=== PATIENT | female | born 1995 | race Caucasian/White ===

== ENCOUNTER 2020-05-27 13:11 | Emergency (ER) | payer BC ==
--- OUTSIDE RECORDS SUMMARY | 2020-05-27 13:14 | XMS REPORT | Continuity of Care Document ---
:1995 Author Organization [facility] t Address [address] [place] [address] Care Team Providers Name Role Phone Unavailable Unavailable Unavailable Payers Payer Name Policy Type Policy Number Effective Date Expiration Date S ource Problems This patient has no known problems. Allergies, Adverse Reactions, Alerts Allergy Allergy Status Severity Reaction(s) Onset Inactive Treating Comm ents Source Name Type Date Date Clinician No Known DA Active U 2020-0 [facility] [place] No Known DA Active U 2020-0 [facility] Medications This patient has no known medications. Procedures This patient has no known procedures. Results Test Description Test Time Test Comments Results Result Comments Source INFLUENZA A B PCR 2020-05-15 19:49:00 Test Item Value Reference Range Interpretation Comme nts INFLUENZA A PCR (test code = FLUAPCR) NEGATIVE NEGATIVE INFLUENZA B PCR (test code = FLUBPCR) NEGATIVE NEGATIVE Coronavirus 2018 nCoV [id number] 19:38:00 Test Item Value Reference Range Interpretation Comments Coronavirus 2019 Positive Negative A RESULTS CA LLED TO OBI nCoV Bedside (test A.READ BA CK & CONFIRMED? code = [id number]) YBY F.L AB.IR 05/15/201937 Positive r esults are indicative of t he presence ofSARS -CoV-2 RNA; clinical c orrelation with patient hi storyand other diagnosti c information is necessary to determinepat ient infection statu s. Positive result s do not rule outbacteri al infection or co -infection with other viru ses.TEST PERFORMED UNDER AN EMERGENCY USE AUTHORIZATION F ROM FDA Specimen Comment: CLEAN CATCHLACTIC [id number] 18:37:00 Test Item Value Reference Range Interpretation Comments LACTIC ACID (test code = LACT) 0.8 MMOL/L 0.5-2.2 N Specimen Comment: CLEAN CATCHCOMPREHENSIVE METABOLIC [id number] 18:37:00 Test Item Value Reference Range Interpretation Comments SODIUM (test code = NA) 138 mEq/L 135-145 N POTASSIUM (test code = K) 3.7 mEq/L 3.5-5.0 N CHLORIDE (test code = CL) 103 mEq/L 100-115 N CARBON DIOXIDE (test code = CO2) 23 mEq/L 22-31 N ANION GAP (test code = GAP) 15.90 10-20 N GLUCOSE (test code = GLU) 95 mg/dL 65-110 N BLOOD UREA NITROGEN (test code = 12 mg/dL 7-18 N BUN) GLOMERULAR FILTRATION RATE (test 75 ml/min >60 N code = GFR) CREATININE (test code = CREAT) 0.9 mg/dL 0.5-1.0 N TOTAL PROTEIN (test code = PROT) 6.9 gm/dL 6.3-8.2 N ALBUMIN (test code = ALB) 3.6 gm/dL 3.4-4.8 N CALCIUM (test code = CA) 8.1 mg/dL 8.4-10.2 L BILIRUBIN TOTAL (test code = 0.2 mg/dL 0.2-1.0 N BILT) SGOT/AST (test code = AST) 29 units/L 15-37 N SGPT/ALT (test code = ALT) 34 units/L 12-78 N ALKALINE PHOSPHATASE TOTAL (test 113 units/L 46-116 N code = ALKP) Specimen Comment: CLEAN CATCHLIVER [id number] 18:37:00 Test Item Value Reference Range Interpretation Comments BILIRUBIN DIRECT (test code = BILD) 0.1 mg/dL <0.2 N Specimen Comment: CLEAN [id number] 18:37:00 Test Item Value Reference Range Interpretation Comments TROPONIN-I (test code = TROPI) <0.017 ng/mL <0.056 N Specimen Comment: CLEAN CATCH- XR CHEST 1 [id number] 18:30:00 Patient Name: VIVIENNE SAM Unit No: [id number] EXAMS: CPT CODE: [id number] XR CHEST 1 V 50717 SINGLE VIEW RADIOGRAPH CHEST INDICATION: CODE SEPSIS. Fever, headache, sore breast TECHNIQUE: A single view frontal radiograph of the chest was obtained. COMPARISONS: None. FINDINGS: There is no acute osseous fracture or dislocation. There is no subdiaphragmatic free gas. The cardiomediastinal size and contour are normal. There is no pneumothorax,pleural effusion or organized pneumonia. IMPRESSION: 1. No acute cardiopulmonary process. at 1830 Reported and signed by: Miguel Ángel Rubin DO CC: Tyler Chance MD; Manolo Whyte MD Technologist: Josy Foster, RT, CT Trnscrbd D/ (1829) [email or web address] Orig Print D/T: S: 05/15/2020 (1832) [facility] NAME: VIVIENNE SAM Radiology Department PHYS: Tyler Warner [address] : 1995 AGE: 25 SEX: F [place], [place] [address] LOC: YAMEL PHONE #: [phone] EXAM DATE: 05/15/2020 STATUS: PRE ER FAX #: [phone] RAD NO: Page 1 Signed ReportPROTHROMBIN [id number] 18:24:00 Test Item Value Reference Range Interpretation Comments PROTHROMBIN TIME PATIENT (test code 13.5 secs 10.4-12.4 H = PTP) Specimen Comment: CLEAN CATCHIS PATIENT ON ANTICOAGULANTS ? NINTERNATIONAL NORMAL [id number] 18:24:00 Test Item Value Reference Range Interpretation Comments INTERNATIONAL NORMAL 1.25 The INR is to be used RATIO (test code = INR) only for monitoring oral anticoagulantth erapy. INDICATION INR VALUE 1. Prophylaxis inc luding high risk castellanos rgery 2.0 - 2.52. Deep venous thr ombosis. Pulmonary em bolism. Atrial fibrilla tion or bioprostheti c heart valves 2.0 - 3.03. Mechanical hear t valves or recurren t systemic emboli sm. 3.0 - 3.5 Specimen Comment: CLEAN CATCHIS PATIENT ON ANTICOAGULANTS ? NTHROMBOPLASTIN TIME [id number] 18:24:00 Test Item Value Reference Range Interpretation Comments THROMBOPLASTIN TIME PARTIAL (test 36.3 secs 22-38 N code = PTT) Specimen Comment: CLEAN CATCHIS PATIENT ON ANTICOAGULANTS ? NUA RFLX MICR CULT IF [id number] 18:16:00 Test Item Value Reference Range Interpretation Comments UA COLOR (test code = YELLOW YELLOW COLU) UA APPEARANCE (test code Slightly-Cloudy CLEAR = APPU) UA GLUCOSE DIPSTICK (test NEGATIVE NEG code = DGLUU) UA BILIRUBIN DIPSTICK NEGATIVE NEG (test code = BILU) UA KETONE DIPSTICK (test TRACE NEG A code = KETU) UA SPECIFIC GRAVITY (test 1.011 1.001-1.035 N code = SGU) UA BLOOD DIPSTICK (test 3+ NEG A code = NIALL) UA PH DIPSTICK (test code 5.0 5-9 = GERLAD) UA PROTEIN DIPSTICK (test NEGATIVE NEG code = PROU) UA UROBILINIOGEN DIPSTICK NEGATIVE mg/dL NEG (test code = URO) UA NITRITE DIPSTICK (test NEG NEG code = CHERYL) UA LEUKOCYTE ESTERASE 2+ NEG A DIPSTICK (test code = LEUU) UA WBC (test code = WBCU) 21-30 #/hpf NONE SEEN A UA RBC (test code = RBCU) TOO NUMEROUS TO CNT NONE SEEN A #/hpf UA EPITHELIAL CELLS (test FEW #/HPF RARE-FEW code = EPIU) UA BACTERIA (test code = FEW /HPF RARE-FEW BACU) UA MUCUS (test code = RARE NONE SEEN MUCU) Specimen Comment: CLEAN CATCHIndication for culture: Suprapubic PainCBC W/AUTO [id number] 18:08:00 Test Item Value Reference Range Interpretation Comments WHITE BLOOD CELL (test code = WBC) 6.7 K/mm3 6.6-12.1 N RED BLOOD CELL (test code = RBC) 4.65 M/mm3 3.45-5.01 N HEMOGLOBIN (test code = HGB) 13.1 g/dL 10.7-13.9 N HEMATOCRIT (test code = HCT) 40.9 % 32.1-42.1 N MEAN CELL VOLUME (test code = MCV) 88 fL 84.1-94.8 N MEAN CELL HGB (test code = MCH) 28.2 pg 27-35 N MEAN CELL HGB CONCETRATION (test 32.0 gm/dL 32.2-34.1 L code = MCHC) RED CELL DISTRIBUTION WIDTH (test 13.5 % 12.4-16.5 N code = RDW) PLATELET COUNT (test code = PLT) 185 K/mm3 133-385 N MEAN PLATELET VOLUME (test code = 11.3 fl 9.1-12.7 N MPV) NEUTROPHIL % (test code = NT%) 67.1 % 56.5-79.4 N LYMPHOCYTE % (test code = LY%) 22.1 % 14.3-34.3 N MONOCYTE % (test code = MO%) 9.4 % 5.1-10.4 N EOSINOPHIL % (test code = EO%) 0.7 % 0.1-3.0 N BASOPHIL % (test code = BA%) 0.4 % 0.1-1.0 N NEUTROPHIL # (test code = NT#) 4.5 K/mm3 LYMPHOCYTE # (test code = LY#) 1.5 K/mm3 MONOCYTE # (test code = MO#) 0.6 K/mm3 EOSINOPHIL # (test code = EO#) 0.05 K/mm3 BASOPHIL # (test code = BA#) 0.0 K/mm3 RBC MORPHOLOGY REQUIRED (test code NORMAL NORMAL = RBCM) PLATELET MORPHOLOGY REQUIRED (test NORMAL NORMAL code = PLTMR) Specimen Comment: CLEAN CATCHAG HEPATITIS B [id number] 17:03:00 Test Item Value Reference Range Interpretation Comments AG HEPATITIS B SURFACE (test code NONREACTIVE NONREACTIVE = HBSAG) Specimen Comment: MACIS CONSENT FORM SIGNED FOR HIV TESTING? YAB HEPATITIS C [id number] 17:03:00 Test Item Value Reference Range Interpretation Comments AB HEPATITIS C (test code = NONREACTIVE NONREACTIVE HCVAB) SIGNAL TO CUTOFF (test code = <0.02 <0.80 N CUTOFF) Specimen Comment: MACIS CONSENT FORM SIGNED FOR HIV TESTING? YAB TREPONEMA 2020-04-16 17:03:00 Test Item Value Reference Range Interpretation Comments AB TREPONEMA (test code = TREPAB) NONREACTIVE NONREACTIVE Specimen Comment: MACIS CONSENT FORM SIGNED FOR HIV TESTING? YAB HIV 1 2 2020-04-16 17:03:00 Test Item Value Reference Range Interpretation Comments AB HIV 1 2 (test NONREACTIVE NONREACTIVE Done by Neil Varghese code = [id number]) 4th Gen HIV Ag/Ab Combo Screen Specimen Comment: MACIS CONSENT FORM SIGNED FOR HIV TESTING? YAG HEPATITIS B [id number] 16:35:00 Test Item Value Reference Range Interpretation Comments AG HEPATITIS B SURFACE (test code NONREACTIVE NONREACTIVE = HBSAG) Specimen Comment: MACIS CONSENT FORM SIGNED FOR HIV TESTING? YAB HEPATITIS C [id number] 16:35:00 Test Item Value Reference Range Interpretation Comments AB HEPATITIS C (test code = HCVAB) NONREACTIVE SIGNAL TO CUTOFF (test code = CUTOFF) <0.80 Specimen Comment: MACIS CONSENT FORM SIGNED FOR HIV TESTING? YAB TREPONEMA 2020-04-16 16:35:00 Test Item Value Reference Range Interpretation Comments AB TREPONEMA (test code = TREPAB) NONREACTIVE NONREACTIVE Specimen Comment: MACIS CONSENT FORM SIGNED FOR HIV TESTING? YAB HIV 1 2 2020-04-16 16:35:00 Test Item Value Reference Range Interpretation Comments AB HIV 1 2 (test code = [id number]) NONREACTIVE Specimen Comment: MACIS CONSENT FORM SIGNED FOR HIV TESTING? YCBC W/AUTO DIFF 2020-04-16 15:55:00 Test Item Value Reference Range Interpretation Comments WHITE BLOOD CELL 23.7 K/mm3 6.6-12.1 HH RESULTS TRISTAN IFIED BY (test code = WBC) REPEAT NASRIN LYSISRESULTS CALLED TO JANET StoneREAD BACK & CONFIRME D? Y.BY F.LAB.[facility] [place] 04/16 9763. RED BLOOD CELL (test 4.39 M/mm3 3.45-5.01 N code = RBC) HEMOGLOBIN (test 12.6 g/dL 10.7-13.9 N code = HGB) HEMATOCRIT (test 38.2 % 32.1-42.1 N code = HCT) MEAN CELL VOLUME 87 fL 84.1-94.8 N (test code = MCV) MEAN CELL HGB (test 28.7 pg 27-35 N code = MCH) MEAN CELL HGB 33.0 gm/dL 32.2-34.1 N CONCETRATION (test code = MCHC) RED CELL 13.1 % 12.4-16.5 N DISTRIBUTION WIDTH (test code = RDW) PLATELET COUNT (test 243 K/mm3 133-385 N code = PLT) MEAN PLATELET VOLUME 11.7 fl 9.1-12.7 N (test code = MPV) NEUTROPHIL % (test 81.6 % 56.5-79.4 H code = NT%) LYMPHOCYTE % (test 11.0 % 14.3-34.3 L code = LY%) MONOCYTE % (test 6.1 % 5.1-10.4 N code = MO%) EOSINOPHIL % (test 0.3 % 0.1-3.0 N code = EO%) BASOPHIL % (test 0.2 % 0.1-1.0 N code = BA%) NEUTROPHIL # (test 19.4 K/mm3 code = NT#) LYMPHOCYTE # (test 2.6 K/mm3 code = LY#) MONOCYTE # (test 1.5 K/mm3 code = MO#) EOSINOPHIL # (test 0.07 K/mm3 code = EO#) BASOPHIL # (test 0.1 K/mm3 code = BA#) RBC MORPHOLOGY NORMAL NORMAL REQUIRED (test code = RBCM) PLATELET MORPHOLOGY NORMAL NORMAL REQUIRED (test code = PLTMR) Coronavirus 2018 [facility] [id number] 14:07:00 Test Item Value Reference Range Interpretation Comments Coronavirus 2018 Negative Negative RESULTS C ALLED TO TAYLOR nCoV Bedside (test THOMPSONR EAD BACK & code = CONFIRMED? BY F .LAB.LBA COVNONPUIBED) 04/16/20 1407 This result does not rule o ut co-infections w ith otherpathogens. * False negative result s may occur if a specimen i simproperly collected, clemens sported or handled. False negativeresults may also occur if amplif ication inhibitors arep resent in the specimen or if inadequate leve ls of virusesare pres ent in the specimen. Negat jennifer results should beconsid ered in the context of a pa tient's recent exposure s,history and the presenc e of clinical signs and symptomsconsist ent with COVID-19. * Neg ative results should be treated as presumptive andtested with an alterna tive FDA authorized mole cular assayif necessa ry for clinical managm ent, including infectioncontro l. * As with any molecu lar test,mutations within the target regions Bodwen ID NOW COVID-[address] could affect primeran d/or probe binding resulti ng in failure to dete ct therescence of the virus.TEST PERF ORMED UNDER AN EMERGENCY US E AUTHORIZATION F ROM FDA
[2020-05-27 14:13] LABS: Urine Blood 2+ (NEG); Urine Glucose NEGATIVE (NEG); Urine Protein NEGATIVE (NEG); Urine Specific Gravity 1.025 (1.005-1.030)
[2020-05-27 14:16] LABS: Basophils % 0.3 % (0-1.3); Hematocrit 41.1 % (36.0-45.0); MPV 8.9 fL (7.6-11.3); RBC Red Blood Cell Count 4.93 M/uL (3.86-4.86)
[2020-05-27 14:19] LABS: Urine Bacteria <20 /HPF (<20); Urine Culture Reflex Order NOT NEEDED; Urine RBC <5 /HPF (NONE SEEN)
[2020-05-27 14:23] LABS: Bilirubin Direct 0.2 mg/dL (0-0.2); Bilirubin Total 0.8 mg/dL (0.2-1.0); Potassium 3.9 mmol/L (3.5-5.1); Protein, Total 7.8 g/dL (6.4-8.2)
--- NOTE | 2020-05-27 14:51 | RAD REPORT ---
EXAM DESCRIPTION: US - Abdomen Exam Limited - 05/27/2020 2:03 pm CLINICAL HISTORY: ABD PAIN COMPARISON: No comparisons FINDINGS: No gallstones, sludge or other abnormalities within the gallbladder lumen. There is no wal l thickening or pericholecystic fluid. No common duct stone or biliary tree dilatation identified. IMPRESSION: Normal gallbladder and biliary tree ultrasound.
--- NOTE | 2020-05-27 14:59 | RAD REPORT ---
EXAM DESCRIPTION: CT - Abdomen Pelvis W Contrast - 05/27/2020 2:52 pm CLINICAL HISTORY: 6 weeks ;Abd pain COMPARISON: Abdomen Exam Limited dated 05/27/2020 TECHNIQUE: Biphasic, helical CT imaging of the abdomen and pelvis was performed following 100 ml non -ionic IV contrast. No oral contrast administered. All CT scans are performed using dose optimization technique as appropriate and may include automated exposure control or mA/KV adjustment according to patient size. FINDINGS: No suspicious findings in the lung bases. The liver, spleen, and pancreas show no suspicious findings. Gallbladder and biliary tree are also wi thout suspicious finding. Symmetric renal function is seen with no hydronephrosis or suspicious renal mass. No pyelonephritis o r acute parenchymal process. No bladder abnormalities. No adrenal abnormalities. Uterus is normal size for 6 week status. No abnormal air or fluid collection in the endome trial cavity. Ovaries and adnexa show no suspicious findings. Stomach, duodenum and jejunum are unremarkable. Patient has significant wall thickening and edema inv olving most or all of the ileum to the terminal ileum level. Cecum is not involved. No acute colon pr ocess identified. Free fluid is collecting in the dependent portion of the pelvis. No free air or pn eumatosis. No mass of the small bowel seen. No mass or bulky lymphadenopathy. Patient as a 12 mm fat only umbilical hernia. No suspicious bony findings. IMPRESSION: Moderate severity ileitis pattern involving most or all of the ileum including the termi nal ileum. No colon involvement. No free air, abscess or surgically emergent finding. Uterus, ovaries and adnexa unremarkable.
[2020-05-27] MEDS ORDERED: NA CHLORIDE 0.9% 1,000 ML ONE (15:01)
[2020-05-27] MEDS ORDERED: ONDANSETRON 4 MG/2 ML VIAL ONE (15:33)
[2020-05-27] MEDS ORDERED: MORPHINE 4 MG/ML SYR ONE (15:33)
--- NOTE | 2020-05-27 16:02 | EDPHYS ---
Physician Documentation [facility] Name: Keren Kelley Age: 25 yrs Sex: Female : 1995 Arrival Date: 05/27/2020 Time: 13:12 Bed 14 Private MD: ED Physician Pillo Palafox HPI: 05/27 13:30 This 25 yrs old Female presents to ER via Unassigned with complaints of rn Abdominal Pain - 6 wks post . 13:30 The patient presents with abdominal pain in the epigastric area, in the periumbilical rn area. 13:32 The symptoms do not radiate. Associated signs and symptoms: Pertinent positives: rn nausea, Pertinent negatives: blood in stools, dysuria, fever. The symptoms are described as achy, crampy. Modifying factors: The symptoms are alleviated by nothing, the symptoms are aggravated by touching the area. Severity of pain: At its worst the pain was moderate in the emergency department the pain has improved. The patient has not experienced similar symptoms in the past. Reports 6 weeks , no vaginal discharge or pain, no fever, + nausea and mid to upper abd pain, reports now feeling lower abd pain. No diarrhea. No previous similar episodes. . LOCAL SUPERINTENDENT: 15:41 LMP N/A - control method Historical: - Allergies: 13:40 No Known Allergies; 7 - Home Meds: 13:40 None [Active]; ks7 - PMHx: 13:40 None; 7 - Immunization history:: Adult Immunizations unknown. - Social history:: Smoking status: Patient denies any tobacco usage or history of. - Family history:: not pertinent. - Hospitalizations: : No recent hospitalization is reported. ROS: 13:32 Constitutional: Negative for fever, chills, and weight loss, Eyes: Negative for injury, rn pain, redness, and discharge, Neck: Negative for injury, pain, and swelling, Cardiovascular: Negative for chest pain, palpitations, and edema, Respiratory: Negative for shortness of breath, cough, wheezing, and pleuritic chest pain, Abdomen/GI: + abd pain and nausea Back: Negative for injury and pain, : Negative for injury, bleeding, discharge, and swelling, MS/Extremity: Negative for injury and deformity, Skin: Negative for injury, rash, and discoloration, Neuro: Negative for headache, weakness, numbness, tingling, and seizure. Exam: 13:32 Constitutional: This is a well developed, well nourished patient who is awake, alert, rn and in no acute distress. Head/Face: Normocephalic, atraumatic. Cardiovascular: Regular rate and rhythm. No pulse deficits. Respiratory: No increased work of breathing, no retractions or nasal flaring. Abdomen/GI: soft, + epigastric/periumbilical/suparpubic tenderness, no rebound Skin: Warm, dry MS/ Extremity: Pulses equal, no cyanosis. Neurovascular intact. Full, normal range of motion. Equal circumference. Neuro: Awake and alert, GCS 15 Vital Signs: 13:38 BP 108 / 69; Pulse 103; Resp 18; Pulse Ox 100% on R/A; Pain 7/10; ks7 14:01 BP 110 / 71; Pulse 98; Resp 18; Pulse Ox 100% ; Pain 7/10; ks7 14:59 BP 109 / 78; Pulse 96; Resp 18; Pulse Ox 100% on R/A; Pain 4/10; ks7 15:41 BP 97 / 57; Pulse 99; Resp 18; Temp 98.5(O); Pulse Ox 100% on R/A; ks7 15:48 Temp 98.5(O); Pulse Ox 100% ; Pain 5/10; ks7 15:50 Pulse Ox 100% ; ks7 16:22 BP 98 / 57; Pulse 99; Resp 18; Temp 98.5(O); Pulse Ox 100% on R/A; Pain 0/10; ks7 17:06 BP 102 / 64; Pulse 98; Resp 18; Pulse Ox 100% ; Pain 0/10; ks7 MDM: 13:23 Patient medically screened. rn 15:58 Differential diagnosis: gastritis, non-specific abd pain, urinary tract infection, rn pancreatitis, enteritis, colitis, appendicitis. Data reviewed: vital signs, nurses notes, lab test result(s), radiologic studies, CT scan, ultrasound, and as a result, I will discharge patient. Counseling: I had a detailed discussion with the patient and/or guardian regarding: the historical points, exam findings, and any diagnostic results supporting the discharge/admit diagnosis, lab results, radiology results, the need for outpatient follow up, to return to the emergency department if symptoms worsen or persist or if there are any questions or concerns that arise at home. Special discussion: I discussed with the patient/guardian in detail that at this point there is no indication for admission to the hospital. It is understood, however, that if the symptoms persist or worsen the patient needs to return immediately for re-evaluation. ED course: CT shows nonspecific ileitis/enteritis, no acute surgical findings, + dehydration in urine, will given 1 L bolus, and dc home with pcp f/u and return precautions. Pt will pump and dump breastmilk for 2 days since given morphine and CT with contrast. . 05/27 13:30 Order name: Basic Metabolic Panel rn 05/27 13:30 Order name: CBC with Diff rn 05/27 13:30 Order name: Hepatic Function rn 05/27 13:30 Order name: Lipase rn 05/27 13:30 Order name: Urine Microscopic Only rn 05/27 14:05 Order name: Urine Dipstick--Ancillary (enter results) 05/27 14:05 Order name: Urine --Ancillary (enter results) 05/27 14:13 Order name: Urine --Ancillary; Complete Time: 14:37 EDMS 05/27 14:14 Order name: Urine Dipstick-Ancillary; Complete Time: 14:37 EDID 05/27 14:18 Order name: CREATININE WHOLE BLOOD; Complete Time: 14:37 EDMS 05/27 14:19 Order name: Urine Microscopic Only; Complete Time: 14:37 EDMS 05/27 14:23 Order name: Basic Metabolic Panel; Complete Time: 14:37 EDMS 05/27 14:23 Order name: Liver (Hepatic) Function; Complete Time: 14:37 EDMS 05/27 14:23 Order name: Lipase; Complete Time: 14:37 EDMS 05/27 13:30 Order name: IV Saline Lock; Complete Time: 14:01 rn 05/27 13:30 Order name: Labs collected and sent; Complete Time: 14:01 rn 05/27 13:30 Order name: US Abdomen Limited rn 05/27 13:30 Order name: CT Abd/Pelvis - IV Contrast Only rn 05/27 13:30 Order name: Urine Dipstick-Ancillary (obtain specimen); Complete Time: 14:00 rn 05/27 14:36 Order name: CBC with Automated Diff EDID 05/27 14:52 Order name: US; Complete Time: 15:23 EDMS 05/27 15:00 Order name: CT; Complete Time: 15:23 EDMS Administered Medications: 14:59 Drug: NS 0.9% 1000 ml Route: IV; Rate: 1000 ml; Site: right antecubital; ks7 15:25 Drug: Zofran (Ondansetron) 4 mg Route: IVP; Site: right antecubital; ks7 15:50 Follow up: Pulse Ox 100% ; nausea resolved ks7 15:26 Drug: morphine 2 mg Route: IVP; Site: right antecubital; ks7 15:48 Follow up: Temp 98.5 Oral; Pulse Ox 100% ; Pain 5/10 Adult ks7 15:49 Drug: morphine 2 mg Route: IVP; Site: right antecubital; ks7 Disposition: 05/27/20 16:01 Discharged to Home. Impression: Dehydration, Ileitis. - Condition is Stable. - Discharge Instructions: Dehydration, Adult, Viral Gastroenteritis, Adult. - Prescriptions for Zofran ODT 4 mg Oral tablet,disintegrating - place 1 tablet by TRANSLINGUAL route every 8 hours As needed; 15 tablet. - Medication Reconciliation Form, Thank You Letter, Antibiotic Education, Prescription Opioid Use form. - Follow up: Private Physician; When: As needed; Reason: Recheck today's complaints, Re-evaluation by your physician. - Problem is new. - Symptoms have improved. Signatures: Dispatcher [employer] [facility] Pillo Palafox MD MD rn Songcuan, Kathleen, RN RN ks7 Corrections: (The following items were deleted from the chart) 17:07 16:01 05/27/2020 16:01 Discharged to Home. Impression: Dehydration; Ileitis. Condition ks7 is Stable. Forms are Medication Reconciliation Form, Thank You Letter, Antibiotic Education, Prescription Opioid Use. Follow up: Private Physician; When: As needed; Reason: Recheck today's complaints, Re-evaluation by your physician. Problem is new. Symptoms have improved. rn
--- NOTE | 2020-05-27 16:02 | ER ---
Nurse's Notes [facility] Name: Keren Kelley Age: 25 yrs Sex: Female : 1995 Arrival Date: 05/27/2020 Time: 13:12 Bed 14 Private MD: Diagnosis: Dehydration;Ileitis Presentation: 05/27 13:38 Chief complaint: Patient states: c/o sharp abd pain starting at 0300 this am. pt also ks7 states she had 3 bouts of diarrhea since 0300. denies n/v. Coronavirus screen: Client denies travel out of the [place] in the last 14 days. At this time, the client does not indicate any symptoms associated with coronavirus-19. The client denies any previous COVID testing. Ebola Screen: Patient negative for fever greater than or equal to 101.5 degrees Fahrenheit, and additional compatible Ebola Virus Disease symptoms Patient denies exposure to infectious person. Patient denies travel to an Ebola-affected area in the 21 days before illness onset. Initial Sepsis Screen: Does the patient meet any 2 criteria? No. Patient's initial sepsis screen is negative. Does the patient have a suspected source of infection? No. Patient's initial sepsis screen is negative. Risk Assessment: Do you want to hurt yourself or someone else? Patient reports no desire to harm self or others. Onset of symptoms was May 27, 2020. 13:38 Method Of Arrival: Ambulatory ks7 13:38 Acuity: KAMARI 3 ks7 Triage Assessment: 13:40 General: Appears in no apparent distress. uncomfortable, Behavior is calm, cooperative. ks7 Pain: Complains of pain in abdomen Pain currently is 7 out of 10 on a pain scale. Quality of pain is described as sharp, Pain began suddenly. GI: Bowel sounds present X 4 quads. Reports lower abdominal pain, diarrhea. 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 - Social history:: Smoking status: Patient denies any tobacco usage or history of. - Family history:: not pertinent. - Hospitalizations: : No recent hospitalization is reported. Screenin:01 Abuse screen: Denies threats or abuse. Denies injuries from another. Nutritional ks7 screening: No deficits noted. Tuberculosis screening: No symptoms or risk factors identified. Fall Risk None identified. Assessment: 14:01 GI: Abd is soft Abdomen is tender to palpation in right lower quadrant and left lower ks7 quadrant. 17:06 Reassessment: Patient denies pain at this time. Patient states feeling better. ks7 Vital Signs: 13:38 BP 108 / 69; Pulse 103; Resp 18; Pulse Ox 100% on R/A; Pain 7/10; ks7 14:01 BP 110 / 71; Pulse 98; Resp 18; Pulse Ox 100% ; Pain 7/10; ks7 14:59 BP 109 / 78; Pulse 96; Resp 18; Pulse Ox 100% on R/A; Pain 4/10; ks7 15:41 BP 97 / 57; Pulse 99; Resp 18; Temp 98.5(O); Pulse Ox 100% on R/A; ks7 15:48 Temp 98.5(O); Pulse Ox 100% ; Pain 5/10; ks7 15:50 Pulse Ox 100% ; ks7 16:22 BP 98 / 57; Pulse 99; Resp 18; Temp 98.5(O); Pulse Ox 100% on R/A; Pain 0/10; ks7 17:06 BP 102 / 64; Pulse 98; Resp 18; Pulse Ox 100% ; Pain 0/10; ks7 ED Course: 13:12 Patient arrived in ED. as 13:23 Pillo Palafox MD is Attending Physician. rn 13:27 Roya Smith, SAIRA is Primary Nurse. ks7 13:38 Roya Smith RN is Primary Nurse. ks7 13:40 Triage completed. ks7 13:41 Arm band placed on left wrist. ks7 14:00 Urine Microscopic Only Sent. ks7 14:00 US Abdomen Limited Sent. ks7 14:00 Basic Metabolic Panel Sent. ks7 14:00 CBC with Diff Sent. ks7 14:00 Hepatic Function Sent. ks7 14:00 Lipase Sent. ks7 14:01 Resting quietly. ks7 14:01 Patient has correct armband on for positive identification. Bed in low position. Call ks7 light in reach. Side rails up X2. 14:01 No provider procedures requiring assistance completed. Inserted saline lock: 20 gauge ks7 in right antecubital area, using aseptic technique. Blood collected. 15:31 ED physician to see patient. at bedside discussing results and plan of care with pt. ks7 17:06 IV discontinued, intact, bleeding controlled, No redness/swelling at site. Pressure ks7 dressing applied. Administered Medications: 14:59 Drug: NS 0.9% 1000 ml Route: IV; Rate: 1000 ml; Site: right antecubital; ks7 15:25 Drug: Zofran (Ondansetron) 4 mg Route: IVP; Site: right antecubital; ks7 15:50 Follow up: Pulse Ox 100% ; nausea resolved ks7 15:26 Drug: morphine 2 mg Route: IVP; Site: right antecubital; ks7 15:48 Follow up: Temp 98.5 Oral; Pulse Ox 100% ; Pain 5/10 Adult ks7 15:49 Drug: morphine 2 mg Route: IVP; Site: right antecubital; ks7 Intake: Outcome: 16:01 Discharge ordered by . rn 17:06 Discharged to home ambulatory. ks7 17:06 Condition: good 17:06 Discharge instructions given to patient, Instructed on discharge instructions, follow up and referral plans. Demonstrated understanding of instructions, follow-up care, medications, bland diet 17:07 Patient left the ED. ks7 Signatures: April Tse Roman, MD MD rn Songcuan, Kathleen, RN RN ks7 Corrections: (The following items were deleted from the chart) 15:44 15:41 BP 97 / 57; Pulse 99bpm; Resp 18bpm; Pulse Ox 100% RA; Pain 0/10; ks7 ks7 15:50 15:41 BP 97 / 57; Pulse 99bpm; Resp 18bpm; Pulse Ox 100% RA; ks7 ks7
[2020-05-27 17:16] VITALS: O2SAT 100
[2020-05-27 17:29] VITALS: TEMP 98.5
[2020-05-27 17:31] LABS: Blood Morphology Comment NOT SEEN (NOT SEEN); Platelet Estimate ADEQ; Urine White Blood Cell Casts OK
[2020-05-27 17:34] VITALS: BP 102/64
== END 2020-05-27 17:07 | disposition home or self-care (01) ==
LOC: ER 13:11
DX: O99.89 Other specified diseases and conditions complicating pregnancy, childbirth and the puerperium (principal); K52.9 Noninfective gastroenteritis and colitis, unspecified; E86.0 Dehydration
CPT/HCPCS: 85025; 80048; 36415; 81025; 82565; 80076; 83690; 74177; 76705; 96375; 96374; 99284; Q9967; J7030; J2405; 81003; 81015